=== PATIENT | male | born 1995 | race Caucasian/White ===

== ENCOUNTER 2019-11-21 17:34 | Emergency (ER) | payer OTHER, SELFPAY ==
[2019-11-21 17:37] VITALS: BP 154/103; PULSE 107; RESP 17; TEMP 36.4; O2SAT 97; BMI 46.1
--- NOTE | 2019-11-21 17:54 | RAD_ITS ---
STUDY: X-RAY - LEFT HAND REASON FOR EXAM: Male, 23 years old. PAIN WITH BRUISING TO MEDIAL HAND ALONG 5TH METACARPAL S/P BEING HIT WITH HOSE TECHNIQUE: 3 view(s) of the hand. COMPARISON: None. FINDINGS: Normal radiocarpal articulation. Normal distal radioulnar joint. Normal visualized carpal bones. Normal carpal articulations Normal carpometacarpal articulation of the thumb. Normal second through fifth carpometacarpal joints. Normal metacarpi. Normal metacarpophalangeal joint of the thumb. Normal interphalangeal joint of the thumb. Normal proximal and distal phalanges of the thumb. Normal metacarpophalangeal joints of the second through fifth fingers. Normal proximal and distal interphalangeal joints of the second through fifth fingers. Normal phalanges of the second through fifth fingers. There is medial soft tissue swelling. RAD/Hand Min 3 Views IMPRESSION: Normal x-ray examination of the hand. Electronically Signed: Rene Dunn MD at 18:09 EDT , Service support ,
[2019-11-21] MEDS: Naproxen 500 MG Tablet PO (17:59)
--- NOTE | 2019-11-21 18:14 | ED.DCSUM_ITS ---
- ER Visit Summary Date of Service: 11/21/19 Chief Complaint: Left hand pain History of Present Illness: The patient is a 23 M with no primary care physician. He is right-hand dominant. Reports that just prior to going to the emergency department he was using a fire extinguisher and it broke. Part of por tion of this hit the medial side of his left hand. He reports he has a sharp pain is 7-10 at worst and 5-10 currently. Is worsened by movement relieved by rest. He denies any paresthesias distally. Physical Examination: Vitals: Stable. Afebrile. General: Well-nourished and well-developed. Head: Normocephalic atraumatic. Neck: Supple, no lymphadenopathy. No JVD. Nontender. Cardiovascular: Regular rate and rhythm. No murmurs. Respiratory: No respiratory distress. Clear to auscultation bilaterally. Abdominal: Soft, nontender, nondistended, normal bowel sounds. No guarding, rebound, or peritoneal signs. Back: Nontender. Extremities: On the posterior medial side of his left hand there is soft tissue swelling and contusion over the proximal fifth metacarpal and the carpal bones. Is mildly tender to palpation. He is neuro vas intact distally. Skin: Normal color, no rash. Neurologic: Alert and oriented ?3. Cranial nerves II through XII are intact. Normal strength and sensation. Psych: Normal affect. Test Results: Clinical Impression(s) from Imaging Studies Hand X-Ray 11/21/19 17:54 IMPRESSION: Normal x-ray examination of the hand. Electronically Signed: Rene Dunn MD at 18:09 EDT , Service support , Emergency Department Course and Treatment: Patient was treated with naproxen. He is resting comfortably. Treatment Plan: Patient will be discharged symptomatic care. Ice the area. Use Tylenol and/or ibuprofen for pain. Follow-up with [facility] in 1 week for another exam. Return to the emergency department for any worsening symptoms. Disposition: To home in improved and stable condition. Impression: 1. Contusion left hand. This note was generated with [employer] software. It may contain incorrect words, spelling, and punctuation that were not noted in review of the chart prior to signing ED Disposition - Plan for ED Patient: Instructions: ED HAND CONTUSION Referrals: [facility] [GROUP OF PHYSICIANS] - 1 Week
== END 2019-11-21 18:43 | disposition home or self-care (01) ==
LOC: ED 18:16
PROVIDERS: Emergency Provider Emergency Medicine
DX: S60.222A Contusion of left hand, initial encounter (principal); W22.8XXA Striking against or struck by other objects, initial encounter; Y93.9 Activity, unspecified; Y92.9 Unspecified place or not applicable; Y99.9 Unspecified external cause status; F17.290 Nicotine dependence, other tobacco product, uncomplicated
CPT/HCPCS: 73130; 99282